=== PATIENT | male | born 1980 | race Asian ===

== ENCOUNTER 2016-08-09 12:59 | Emergency (ER) | payer OTHER ==
[~2016-08-09] VITALS: Ht 175.3 cm; Wt 78.5 kg
== END 2016-08-09 14:35 | disposition home or self-care (01) ==
LOC: ED 12:59
DX: L03.114 Cellulitis of left upper limb (principal); L02.512 Cutaneous abscess of left hand
CPT/HCPCS: 96372; 99283; J0696; J1885

== ENCOUNTER 2016-08-15 14:46 | Emergency (ER) | payer OTHER ==
[~2016-08-15] VITALS: Ht 175.3 cm; Wt 79.4 kg
== END 2016-08-15 16:52 | disposition home or self-care (01) ==
LOC: ED 14:46
DX: S40.862A Insect bite (nonvenomous) of left upper arm, initial encounter (principal); W57.XXXA Bitten or stung by nonvenomous insect and other nonvenomous arthropods, initial encounter; Y92.098 Other place in other non-institutional residence as the place of occurrence of the external cause
CPT/HCPCS: 99282